=== PATIENT | female | born 2000 | race Caucasian/White ===

== ENCOUNTER 2022-09-24 14:32 | Emergency (ER) | payer MEDICAID ==
[2022-09-24 14:42] VITALS: BP 150/100
[2022-09-24 14:58] LABS: BASOPHILS % (AUTO) 0.6 %; EOSINOPHILS # (AUTO) 0.1 10^3/uL (0.0-0.7); EOSINOPHILS % (AUTO) 0.9 %; HCT - HEMATOCRIT 40.4 % (37.0-47.0); HGB - HEMOGLOBIN 12.7 g/dL (12.0-16.0); LYMPHOCYTES # (AUTO) 2.7 10^3/uL (1.5-3.5); LYMPHOCYTES % (AUTO) 39.7 %; MEAN CORPUSCULAR HEMOGLOBIN 26.3 pg (27.0-31.0); MEAN CORPUSCULAR HGB CONC 31.4 g/dL (32.0-36.0); MEAN CORPUSCULAR VOLUME 83.8 fL (81.0-99.0); MONOCYTES # (AUTO) 0.5 10^3/uL (0.0-1.0); MONOCYTES % (AUTO) 7.7 %; NEUTROPHILS # (AUTO) 3.5 10^3/uL (1.5-6.6); PLT - PLATELET COUNT 358 10^3/uL (130-450); RED BLOOD COUNT 4.82 10^6/uL (4.20-5.40); WHITE BLOOD COUNT 6.9 x10^3/uL (4.8-10.8)
[2022-09-24 15:05] LABS: CALCIUM 9.5 mg/dL (8.5-10.3); CREATININE 0.6 mg/dL (0.4-1.0); POTASSIUM 3.7 mmol/L (3.5-5.0)
[2022-09-24 16:12] LABS: BILIRUBIN,URINE NEGATIVE (NEGATIVE); GLUCOSE, URINE (UA) NEGATIVE (NEGATIVE); KETONES,URINE (UA) NEGATIVE (NEGATIVE); LEUKOCYTE ESTERASE, URINE NEGATIVE (NEGATIVE); NITRITE,URINE NEGATIVE (NEGATIVE); OCCULT BLOOD,URINE LARGE (NEGATIVE); PROTEIN,URINE NEGATIVE (NEGATIVE); UROBILINOGEN,URINE 0.2 (NORMAL) E.U./dL (NORMAL)
[2022-09-24 16:15] LABS: CLARITY,URINE CLEAR (CLEAR); HCG UR QUAL NEGATIVE
--- NOTE | 2022-09-24 16:22 | ED Physician Documentation ---
PD HPI FOCAL NEURO - Stated complaint Stated Complaint: DIZZINESS/POSS SYNCOPE - Chief complaint Chief Complaint: Neuro - History obtained from History obtained from: Patient - Additional information Additional information: 21-year-old woman who had been previously healthy has been dizzy all day every day for the last year or so. She feels off balance and lightheaded. She has had numerous hospital visits and ER visits for this. At one point was diagnosed with tachycardia and started on a medication, she does not know what. She does seem to know the name propranolol. In the interim has had extensive testing, per her description she has had echocardiography, multiple labs, CT of the head without clear diagnosis. She is been tried on numerous antianxiety medications including Zoloft and hydroxyzine without relief. She not currently taking any medications. No alcohol or drug use but she does have a remote history of that. Review of Systems Constitutional: reports: Weight Loss. denies: Fever, Chills Throat: denies: Dental pain / toothache, Sore throat Cardiac: denies: Chest pain / pressure Respiratory: denies: Dyspnea, Cough PD PAST MEDICAL HISTORY - Present Medications Home Medications: Ambulatory Orders Medication Instructions Recorded Confirmed Quetiapine Fumarate [Seroquel] 50 mg PO QPM #30 tablet 09/24/22 - Allergies Allergies/Adverse Reactions: Allergies Allergy/AdvReac Type Severity Reaction Status Date / Time No Known Drug Allergies Allergy Verified 09/24/22 14:36 PD ED PE NORMAL - Vitals Vital signs reviewed: Yes - General General: Alert and oriented X 3, No acute distress, Other (tearful) - HEENT HEENT: PERRL, EOMI - Neck Neck: Supple, no meningeal sign, No bony TTP - Cardiac Cardiac: RRR, No murmur - Respiratory Respiratory: No respiratory distress, Clear bilaterally - Abdomen Abdomen: Normal bowel sounds, Soft, Non tender - Back Back: No CVA TTP, No spinal TTP - Derm Derm: Normal color, Warm and dry - Extremities Extremities: No edema, No calf tenderness / cord - Neuro Neuro: Alert and oriented X 3, No motor deficit, No sensory deficit, Normal spe ech Eye Opening: Spontaneous Motor: Obeys Commands Verbal: Oriented GCS Score: 15 Results - Vitals Vitals: Vital Signs - 24 hr 09/24/22 14:37 Temperature 36.5 C Heart Rate 95 Respiratory 16 Rate Blood Pressure 150/100 H O2 Saturation 98 Oxygen O2 Source Room air - EKG (time done) 1500 Rate: Rate (enter#) (123) Rhythm: Sinus tachycardia [place]: Normal Intervals: Normal SC QRS: Normal Ischemia: Non specific changes Computer interpretation: Agree with computer - Labs Labs: Laboratory Tests 09/24/22 09/24/22 09/24/22 14:51 14:51 16:05 WBC 6.9 RBC 4.82 Hgb 12.7 Hct 40.4 MCV 83.8 MCH 26.3 L MCHC 31.4 L RDW 15.0 Plt Count 358 MPV 10.0 Neut # (Auto) 3.5 Lymph # (Auto) 2.7 [place] # (Auto) 0.5 Eos # (Auto) 0.1 Baso # (Auto) 0.0 Absolute Nucleated RBC 0.00 Nucleated RBC % 0.0 Sodium 136 Potassium 3.7 Chloride 101 Carbon Dioxide 25 Anion Gap 10.0 BUN 10 Creatinine 0.6 Estimated GFR (MDRD) 125 Glucose 90 Calcium 9.5 Urine Color STRAW Urine Clarity CLEAR Urine pH 6.0 Ur Specific [place] <=1.005 Urine Protein NEGATIVE Urine Glucose (UA) NEGATIVE Urine Ketones NEGATIVE Urine Occult Blood LARGE H Urine Nitrite NEGATIVE Urine Bilirubin NEGATIVE Urine Urobilinogen 0.2 (NORMAL) Ur Leukocyte Esterase NEGATIVE Ur Microscopic Review INDICATED Urine Culture Comments Not Reportable Urine HCG, Qual NEGATIVE PD Medical Decision Making - ED course ED course: 21-year-old woman presents with chronic dizziness. Normal exam, no evidence of emergency medical condition. No indication for repeat imaging given this this is a chronic problem. We will trial some Seroquel at night, low-dose. Departure - Departure Disposition: Home, Self Care Clinical Impression: Dizziness Condition: Good Record reviewed to determine appropriate education?: Yes Instructions: ED Dizziness [facility] Follow-Up: Emile Ventura MD [Provider Admit Priv/Credential] - Prescriptions: Quetiapine Fumarate [Seroquel] 50 mg PO QPM #30 tablet Comments: On this form is the name of the primary care physician doing ER follow-ups for next week for our health system. That said, as discussed, no local physicians d o ongoing care that I know of with [facility]. I would recommend asking the folks at the front line supervisor if you can be changed to one of the other managed care programs to be able to establish with a local primary care physician. Or you can follow-up with your physician in [place].
[2022-09-24 16:23] LABS: BACTERIA,URINE Rare /HPF (None Seen); SQUAMOUS EPITHELIAL CELL,UR MOD Squamous (<= Few); WBC,URINE 0-3 /HPF (0-5)
== END 2022-09-24 16:28 | disposition home or self-care (01) ==
LOC: ED 14:32
DX: R42 Dizziness and giddiness (principal)
CPT/HCPCS: 36415; 80048; 81001; 81003; 81025; 85025; 87086; 93005; 99283